=== PATIENT | male | born 1965 | race Caucasian/White ===

== ENCOUNTER 2021-08-18 18:22 | Observation (INO) | payer BC ==
[2021-08-18 18:55] LABS: #Eosinphils 0.2 thou/uL (0.0-0.7); #Lymphocytes 1.9 thou/uL (1.20-3.40); #Monocytes 1.3 thou/uL (0.11-0.59); #Neutrophils 8.6 thou/uL (1.40-6.50); %Basophils 0.2 % (0.0-1.0); %Eosinophils 1.3 % (0.0-10.0); %Lymphocytes 15.7 % (21.0-51.0); %Monocytes 10.7 % (0.0-10.0); %Neutrophils 72.1 % (42.0-75.0); Hemoglobin 15.6 g/dL (14.0-18.0); Mean Corpuscular HGB CONC 33.8 g/dL (32.0-36.0); Mean Corpuscular Volume 94.7 fL (78.0-98.0); Mean Platelet Volume 6.7 fL (7.4-10.4); Platelet Count 287 thou/uL (130-400); RBC Distribution Width 11.5 % (11.5-14.5); Red Blood Cell (RBC) Count 4.88 mill/uL (4.70-6.10)
[2021-08-18 19:25] LABS: ALT (SGPT) 38 U/L (8-55); AST (SGOT) 16 U/L (5-34); Albumin 4.5 g/dL (3.5-5.0); Alkaline Phosphatase 76 U/L (40-110); Anion Gap 14 mmol/L (10-20); BUN (Urea Nitrogen) 13 mg/dL (8.4-25.7); Bilirubin, Total 0.8 mg/dL (0.2-1.2); Calc. Creatinine Clearance 0 mL/min (70-130); Calcium 9.7 mg/dL (7.8-10.44); Carbon Dioxide 26 mmol/L (22-29); Chloride 104 mmol/L (98-107); Globulin 2.6 g/dL (2.4-3.5); Glucose 109 mg/dL (70-105); Lipase 27 U/L (8-78); Potassium 4.3 mmol/L (3.5-5.1); Protein, Total 7.1 g/dL (6.0-8.3); Sodium 140 mmol/L (136-145)
[2021-08-18 20:04] LABS: Bacteria/HPF None Seen HPF (None Seen); Bilirubin Negative (Negative); Blood, Urine Trace (Negative); Clarity Clear (Clear); Glucose, Urine (Dipstick) Normal (Negative); Ketone, Urine Negative (Negative); Leukocyte Negative Leu/uL (Negative); Nitrite Negative (Negative); Protein, Urine (Dipstick) Negative (Neg-Trace); RBC/HPF 0-3 HPF (0-3); Specific Gravity, Urine 1.012 (1.002-1.036); Squamous Epithelial None Seen HPF (0-3); Urobilinogen Normal mg/dL (Less than 2); WBC/HPF 0-3 HPF (0-3); pH, Urine 5.5 (5.0-9.0)
[2021-08-18] MEDS ORDERED: Ondansetron PF 4 MG/2 ML Vial ONE (20:28)
[2021-08-18] MEDS ORDERED: Morphine 4 MG/ML VIAL ONE (20:28)
[2021-08-18] MEDS ORDERED: Piperacillin/Tazobactam 3.375 GM VIAL ONE (23:25)
[2021-08-18] MEDS ORDERED: Ketorolac Tromethamine 30 MG/ML VIAL ONE (23:25)
[2021-08-19 00:41] VITALS: BMI 29.2
[2021-08-19] MEDS ORDERED: Lactated Ringer's 1,000 ML IV SCH (00:45)
[2021-08-19] MEDS ORDERED: Ondansetron PF 4 MG/2 ML Vial IVP PRN ×2 (00:45→08:45)
[2021-08-19] MEDS ORDERED: Morphine 4 MG/ML VIAL SLOW IVP PRN ×2 (00:45→08:45)
[2021-08-19] MEDS ORDERED: Ondansetron ODT 4 MG TAB SL PRN (00:45)
[2021-08-19] MEDS ORDERED: Acetaminophen 325 MG TAB PO PRN (00:45)
[2021-08-19 01:47] LABS: SARS-CoV-2 NAA Rapid Test Not Detected (NotDetected)
[2021-08-19] MEDS ORDERED: Piperacillin/Tazobactam 3.375 GM in Sodium Chloride 0.9% 100 ML IVPB SCH ×2 (04:00→12:00)
[2021-08-19] MEDS ORDERED: Dextrose 5% in Water 1,000 ML IV PRN (08:45)
[2021-08-19] MEDS ORDERED: Dextrose 50% Abboject 50 ML SYRINGE SLOW IVP PRN (08:45)
[2021-08-19] MEDS ORDERED: hydrALAZINE 20 MG/ML VIAL SLOW IVP PRN (08:45)
[2021-08-19] MEDS ORDERED: Morphine 2 MG/ML VIAL SLOW IVP PRN (08:45)
[2021-08-19] MEDS ORDERED: Promethazine HCl 25 MG/ML VIAL IM PRN (08:45)
[2021-08-19] MEDS: Famotidine/PF 20 mg/2ml Vial SLOW IVP SCH ×2 (09:44→20:39)
[2021-08-19] MEDS: Famotidine 20 MG TAB PO SCH ×2 (09:45→21:48)
[2021-08-19] MEDS: D5 1/2 NS w/20 mEq KCL 1,000 ML IV SCH ×2 (09:45→18:22)
[2021-08-19] MEDS: Ketorolac Tromethamine 30 MG/ML VIAL IVP PRN ×2 (11:25→18:23)
[2021-08-19] MEDS: Piperacillin/Tazobactam 3.375 GM in Sodium Chloride 0.9% 100 ML IVPB SCH ×2 (12:28→20:37)
[2021-08-19] MEDS ORDERED: Enoxaparin Sodium 40 MG/0.4 ML SYRINGE SC SCH (21:00)
[2021-08-20] MEDS ORDERED: Acetaminophen 325 MG TAB PO PRN (00:30)
[2021-08-20] MEDS: Piperacillin/Tazobactam 3.375 GM in Sodium Chloride 0.9% 100 ML IVPB SCH (04:40)
[2021-08-20] MEDS: D5 1/2 NS w/20 mEq KCL 1,000 ML IV SCH (05:05)
[2021-08-20 06:23] LABS: #Eosinphils 0.2 thou/uL (0.0-0.7); #Lymphocytes 2.6 thou/uL (1.20-3.40); #Monocytes 1.2 thou/uL (0.11-0.59); #Neutrophils 6.5 thou/uL (1.40-6.50); %Basophils 0.4 % (0.0-1.0); %Eosinophils 2.4 % (0.0-10.0); %Lymphocytes 24.9 % (21.0-51.0); %Monocytes 11.1 % (0.0-10.0); %Neutrophils 61.3 % (42.0-75.0); Hemoglobin 15.3 g/dL (14.0-18.0); Mean Corpuscular HGB CONC 32.7 g/dL (32.0-36.0); Mean Corpuscular Hemoglobin 31.1 pg (27.0-31.0); Mean Platelet Volume 7.1 fL (7.4-10.4); Platelet Count 288 thou/uL (130-400); RBC Distribution Width 11.3 % (11.5-14.5); Red Blood Cell (RBC) Count 4.92 mill/uL (4.70-6.10); White Blood Cell (WBC) Count 10.5 thou/uL (4.8-10.8)
[2021-08-20 06:46] LABS: Anion Gap 13 mmol/L (10-20); BUN (Urea Nitrogen) 7 mg/dL (8.4-25.7); Calc. Creatinine Clearance 82 mL/min (70-130); Calcium 9.5 mg/dL (7.8-10.44); Carbon Dioxide 25 mmol/L (22-29); Chloride 105 mmol/L (98-107); Glucose 92 mg/dL (70-105); Potassium 3.6 mmol/L (3.5-5.1); Sodium 139 mmol/L (136-145)
[2021-08-20] MEDS: Famotidine/PF 20 mg/2ml Vial SLOW IVP SCH (09:45)
[2021-08-20] MEDS: Famotidine 20 MG TAB PO SCH (10:26)
[2021-08-20 11:47] VITALS: BP 119/83; TEMP 98.5
== END 2021-08-20 13:44 | disposition home or self-care (01) ==
LOC: ERS 18:22 → SURG B 23:28
PROVIDERS: ADMIT Surgery; ATTEND Surgery
DX: R10.31 Right lower quadrant pain (principal); I10 Essential (primary) hypertension; F17.220 Nicotine dependence, chewing tobacco, uncomplicated; Z79.899 Other long term (current) drug therapy; Z88.2 Allergy status to sulfonamides; Z20.822 Contact with and (suspected) exposure to COVID-19
CPT/HCPCS: 0240U; 36415; 74177; 80048; 80053; 81003; 81015; 83690; 85025; 96366; 96372; 96375; 96376; G0378; J1650; J1885; J2270; J2405; J2543; J3480; J3490; J7120; S0028

== ENCOUNTER 2024-07-25 17:40 | Inpatient (IN) | payer BC ==
[~2024-07-25 17:40] MED LIST: Iopamidol-370 76% 500 ML MDV (1 ML CHARGE) ONE
[2024-07-25] MEDS ORDERED: Ketorolac Tromethamine 30 MG (1 mL) VIAL ONE (18:29)
[2024-07-25] MEDS ORDERED: Morphine 4 MG/ML VIAL ONE (18:29)
[2024-07-25] MEDS ORDERED: Ondansetron ODT 4 MG TAB PO PRN (20:14)
[2024-07-25] MEDS ORDERED: Midazolam HCl 2 mg/2 ml Vial ONE (20:25)
[2024-07-26] MEDS: Cyclobenzaprine 10 MG TAB PO PRN (00:06)
[2024-07-26] MEDS: Acetaminophen 325 MG TAB PO PRN (00:07)
[2024-07-26 00:42] VITALS: BMI 28.8
[2024-07-26 04:57] LABS: #Basophils 0.03 10x3/uL (0.0-0.2); %Basophils 0.3 % (0.0-1.0); %Eosinophils 0.8 % (0.0-10.0); %Lymphocytes 17.2 % (21.0-51.0); %Monocytes 9.1 % (0.0-10.0); %Neutrophils 72.4 % (42.0-75.0); Hematocrit 42.6 % (42.0-52.0); Hemoglobin 14.7 g/dL (14.0-18.0); Mean Corpuscular HGB CONC 34.5 g/dL (32.0-36.0); Mean Corpuscular Hemoglobin 31.3 pg (27.0-31.0); Mean Corpuscular Volume 90.6 fL (78.0-98.0); Mean Platelet Volume 9.2 fL (7.4-10.4); Platelet Count 279 10x3/uL (130-400); RBC Distribution Width 12.6 % (11.5-14.5)
[2024-07-26 05:14] LABS: Anion Gap 13 mmol/L (10-20); BUN (Urea Nitrogen) 14 mg/dL (8.4-25.7); Calc. Creatinine Clearance 83 mL/min (70-130); Calcium 8.7 mg/dL (7.8-10.44); Carbon Dioxide 23 mmol/L (22-29); Chloride 105 mmol/L (98-107); Estimated GFR 75; Glucose 114 mg/dL (70-105); Potassium 3.8 mmol/L (3.5-5.1); Sodium 137 mmol/L (136-145)
[2024-07-26] MEDS: HYDROcodone/Acetaminophen 5/325 mg Tablet PO PRN (05:52)
[2024-07-26] MEDS ORDERED: Non-Formulary Item 1 EACH (Amlodipine Besylate/Valsartan [Amlodipine-Valsartan 10-160 Mg] PO SCH (09:00)
[2024-07-26] MEDS: Amlodipine 10 MG TAB PO SCH (09:12)
[2024-07-26] MEDS: Valsartan 80 MG TAB PO SCH (09:12)
[2024-07-27 14:54] VITALS: BP 138/73; TEMP 98.2
== END 2024-07-27 18:48 | disposition home or self-care (01) | DRG 201 ==
LOC: ERS 17:40 → SURG A 20:22
PROVIDERS: ADMIT Surgery; ATTEND Surgery
PROC: 0W9930Z Drainage of Right Pleural Cavity with Drainage Device, Percutaneous Approach (ICD-10-PCS; principal; 2024-07-25)
DX: S27.0XXA Traumatic pneumothorax, initial encounter (principal); W18.30XA Fall on same level, unspecified, initial encounter; Z88.2 Allergy status to sulfonamides; Z79.899 Other long term (current) drug therapy; I10 Essential (primary) hypertension; Z90.49 Acquired absence of other specified parts of digestive tract; F17.220 Nicotine dependence, chewing tobacco, uncomplicated
CPT/HCPCS: 32551; 36415; 70450; 71045; 71260; 72125; 74177; 80048; 85025; 93005; 96374; 96375; G0390; J1885; J2250; J2272; Q9967

== ENCOUNTER 2024-08-12 10:23 | Outpatient (CLI) | payer BC | END 2024-08-12 10:24 | disposition home or self-care (01) | LOC: RAD 10:23 | PROVIDERS: ATTEND Specialist | DX: J98.19 Other pulmonary collapse (principal) | CPT/HCPCS: 71046 ==

== ENCOUNTER 2024-09-24 09:38 | Emergency (ER) | payer BC ==
[2024-09-24 10:24] LABS: #Basophils 0.04 10x3/uL (0.0-0.2); %Basophils 0.3 % (0.0-1.0); %Eosinophils 0.4 % (0.0-10.0); %Lymphocytes 10.6 % (21.0-51.0); %Monocytes 4.8 % (0.0-10.0); %Neutrophils 83.6 % (42.0-75.0); Hematocrit 49.3 % (42.0-52.0); Hemoglobin 16.5 g/dL (14.0-18.0); Mean Corpuscular HGB CONC 33.5 g/dL (32.0-36.0); Mean Corpuscular Hemoglobin 30.3 pg (27.0-31.0); Mean Corpuscular Volume 90.6 fL (78.0-98.0); Mean Platelet Volume 9.4 fL (7.4-10.4); Platelet Count 306 10x3/uL (130-400); RBC Distribution Width 12.5 % (11.5-14.5); Red Blood Cell (RBC) Count 5.44 mill/uL (4.70-6.10)
[2024-09-24 10:48] LABS: ALT (SGPT) 59 U/L (Less than 45); AST (SGOT) 34 U/L (11-34); Albumin 4.8 g/dL (3.1-4.5); Alkaline Phosphatase 95 U/L (40-110); Anion Gap 16 mmol/L (10-20); BUN (Urea Nitrogen) 14 mg/dL (8.4-25.7); Bilirubin, Total 0.4 mg/dL (0.3-1.2); Calc. Creatinine Clearance 0 mL/min (70-130); Calcium 9.7 mg/dL (7.8-10.44); Carbon Dioxide 24 mmol/L (22-29); Chloride 105 mmol/L (98-107); Estimated GFR 65; Globulin 3.1 g/dL (2.4-3.5); Glucose 133 mg/dL (70-105); Lipase 29 U/L (8-78); Potassium 3.8 mmol/L (3.5-5.1); Protein, Total 7.9 g/dL (6.0-8.3); Sodium 141 mmol/L (136-145)
[2024-09-24 13:38] LABS: Bacteria/HPF None Seen HPF (None Seen); Bilirubin Negative (Negative); Blood, Urine Negative (Negative); CAUTI Indications for Culture Dysuria,urgency,freq; Clarity Clear (Clear); Glucose, Urine (Dipstick) Normal (Negative); Ketone, Urine Negative (Negative); Leukocyte Negative Leu/uL (Negative); Nitrite Negative (Negative); Protein, Urine (Dipstick) Negative (Neg-Trace); Specific Gravity, Urine 1.042 (1.002-1.036); Squamous Epithelial 0-3 HPF (0-3); Urobilinogen Normal mg/dL (Less than 2); WBC/HPF 0-3 HPF (0-3)
[2024-09-24 14:13] LABS: Urine Culture Reflex No No
[2024-09-24 14:54] LABS: Lactic Acid 2.47 mmol/L (0.50-2.20)
== END 2024-09-24 15:35 | disposition home or self-care (01) ==
LOC: ERS 09:38
DX: N21.0 Calculus in bladder (principal); I10 Essential (primary) hypertension; F17.220 Nicotine dependence, chewing tobacco, uncomplicated
CPT/HCPCS: 36415; 74177; 76870; 80053; 81001; 83605; 83690; 85025; 93976; 96361; 96374; 96375